=== PATIENT | male | born 1970 | race Caucasian/White ===

== ENCOUNTER → 2018-01-21 | Outpatient (REF) | payer MEDICARE, OTHER ==
[2018-01-22 12:01] LABS: LITHIUM LEVEL 0.85 MEQ/L (0.60-1.20)
== END ==
LOC: M SFHCCLAY 14:31
DX: F31.70 Bipolar disorder, currently in remission, most recent episode unspecified (principal)
CPT/HCPCS: 80178

== ENCOUNTER → 2018-10-04 | Outpatient (CLI) | payer MEDICARE, OTHER ==
--- NOTE | 2018-10-04 12:27 | REP ---
CAROTID ULTRASOUND: Real-time ultrasound evaluation and duplex Doppler interrogation of the extracranial carotid vasculature is performed. There is mild plaquing and narrowing in both carotid bulbs extending into the internal and external carotid arteries. Luminal narrowing is less than 50%. There is no evidence of hemodynamically significant stenosis of either internal carotid artery. Normal flow velocities are seen. The vertebral arteries demonstrate normal direction of flow. RIGHT LEFT Peak systolic velocity ICA 43.8 cm/s 45.9 cm/s End diastolic velocity ICA 17 cm/s 14.5 cm/s Peak systolic velocity CCA 124 cm/s 122 cm/s Peak systolic velocity ECA 59.6 cm/s 118 cm/s ICA/CCA ratio 0.57 0.7 IMPRESSION: Bilateral luminal narrowing of the internal carotid arteries less than 50%. No evidence of hemodynamically significant stenosis. Electronically Signed by Dwight Baker MD 10/04/2018 12:18 P
--- NOTE | 2018-10-04 12:42 | REP ---
BILATERAL LOWER EXTREMITY DUPLEX DOPPLER VENOUS ULTRASOUND: Real-time compression and duplex Doppler interrogation of bilateral lower extremity deep venous systems is performed. Elongated right inguinal lymph nodes measures 2.9 x 0.6 x 1.5 cm demonstrating a fatty hilum. No acute deep vein thrombosis is seen bilaterally. The common femoral veins are fully compressible with transducer pressure. Right superficial femoral vein distally is at least duplicated but three venous structures are seen indicating either three portions of the superficial femoral vein versus duplication plus a collateral vessel. In one of these veins, there is mild mural thickening and thrombus consistent with mild chronic thrombus. This is also seen in the right popliteal vein. 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 There is mild mural thickening and thrombus in the left popliteal vein consistent with mild chronic thrombus. IMPRESSION: No acute deep vein thrombosis. Mild mural thickening and thrombus in a mid to distal right superficial femoral vein and also in the bilateral popliteal veins compatible with mild chronic thrombus. Electronically Signed by Dwight Baker MD 10/04/2018 04:22 P
== END ==
LOC: M RAD 09:34
PROVIDERS: ATTEND Surgery Vascular Surgery
DX: H53.132 Sudden visual loss, left eye (principal); I82.5Z2 Chronic embolism and thrombosis of unspecified deep veins of left distal lower extremity; I82.5Z1 Chronic embolism and thrombosis of unspecified deep veins of right distal lower extremity

== ENCOUNTER → 2018-10-07 | Outpatient (REF) | payer OTHER ==
[2018-10-07 13:25] LABS: ALT/SGPT 22 U/L (12-78); BILIRUBIN,TOTAL 0.4 MG/DL (0.2-1.0); BLOOD UREA NITROGEN 15 MG/DL (7-18); CARBON DIOXIDE LEVEL 26 MEQ/L (21-32); CHLORIDE LEVEL 107 MEQ/L (98-107); CHOLESTEROL LEVEL 216 MG/DL (<200); CREATININE FOR GFR 0.91 MG/DL (0.70-1.30); GLOMERULAR FILTRATION RATE > 60.0 (>60); GLUCOSE, FASTING 124 MG/DL (70-100); HDL CHOLESTEROL 48 MG/DL (>40); LDL CHOLESTEROL 147 MG/DL (<100); LITHIUM LEVEL 0.37 MEQ/L (0.60-1.20); NON-HDL-C 168 MG/DL; POTASSIUM SERUM 4.5 MEQ/L (3.5-5.1); SODIUM LEVEL 139 MEQ/L (136-145); THYROID STIMULATING HORMONE 0.852 uIU/ML (0.358-3.740); TOTAL PROTEIN 6.9 GM/DL (6.4-8.2); TRIGLYCERIDES LEVEL 104 MG/DL (<150)
== END ==
LOC: M SFHCCLAY 08:06
PROVIDERS: ATTEND Family Medicine
DX: Z00.01 Encounter for general adult medical examination with abnormal findings (principal); Z13.220 Encounter for screening for lipoid disorders; Z13.1 Encounter for screening for diabetes mellitus; F31.70 Bipolar disorder, currently in remission, most recent episode unspecified; Z79.899 Other long term (current) drug therapy

== ENCOUNTER → 2018-10-12 | Outpatient (REF) | payer OTHER ==
[2018-10-12 14:29] LABS: HEMOGLOBIN A1c 5.7 %
== END ==
LOC: M SFHCCLAY 09:04
PROVIDERS: ATTEND Family Medicine
DX: R73.01 Impaired fasting glucose (principal)

== ENCOUNTER → 2018-10-19 | Outpatient (CLI) | payer OTHER ==
--- NOTE | 2018-10-19 15:49 | REP ---
BILATERAL LOWER EXTREMITY DUPLEX DOPPLER ARTERIAL ULTRASOUND: Real-time ultrasound and duplex Doppler interrogation of bilateral lower extremity arterial systems is performed. APOORVA right is 1.2 and left is 1.1. 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 Monophasic waveforms are seen in the distal left anterior and posterior tibial arteries with possible stenosis. Mild scattered plaquing is seen bilaterally more proximally and diffusely without other evidence of significant stenosis. PEAK SYSTOLIC VELOCITY RIGHT LEFT Common femoral artery 102.4 cm/s 120.5 cm/s Profunda 60.5 74.9 Proximal SFA 111.9 108.5 Superficial femoral artery mid 82.5 87.1 Superficial femoral artery distal 64.9 59.6 Popliteal 44.7 55.8 Proximal anterior tibial artery 36.1 48.4 Tibial peroneal trunk 46.8 50.5 Proximal posterior tibial artery 65.7 69.5 Distal posterior tibial artery 17.5 27.8 Distal anterior tibial artery 69.2 45.2 IMPRESSION: Suspected stenosis of the proximal right [employer] S[employer]GER with reversed flow distally as well as associated collateral vessels. Suspected stenosis distal left anterior and posterior tibial arteries. No definite stenosis more proximally bilaterally. Electronically Signed by Dwight Baker MD 10/19/2018 04:00 P
== END ==
LOC: M RAD 11:30
PROVIDERS: ATTEND Physician Assistant
DX: M79.661 Pain in right lower leg (principal); M79.662 Pain in left lower leg

== ENCOUNTER → 2018-10-28 | Outpatient (CLI) | payer OTHER ==
[2018-10-28 15:43] LABS: BASO # 0.1 10^3/uL (0.0-0.2); BASO % 0.5 % (0.0-1.0); EOS # 0.4 10^3/uL (0.0-0.50); EOS % 4.5 % (0.0-3.0); HEMATOCRIT 40.5 % (42.0-52.0); HEMOGLOBIN 13.4 g/dl (13.5-17.5); LYMPH # 2.2 10^3/uL (1.5-4.5); LYMPH % 22.9 % (24.0-44.0); MEAN CORPUSCULAR HGB CONC 33.1 g/dl (32.0-36.5); MEAN CORPUSCULAR VOLUME 93.8 fl (80.0-96.0); MONO # 0.7 10^3/uL (0.0-0.8); MONO % 6.7 % (0.0-5.0); NEUTROPHILS # 6.3 10^3/uL (1.8-7.7); PLATELET COUNT, AUTOMATED 253 10^3/uL (150-450); RED BLOOD COUNT 4.32 10^6/uL (4.30-6.10); WHITE BLOOD COUNT 9.6 10^3/uL (4.0-10.0)
== END ==
LOC: M LAB 14:47
PROVIDERS: ATTEND Physician Assistant
DX: I70.211 Atherosclerosis of native arteries of extremities with intermittent claudication, right leg (principal)

== ENCOUNTER → 2018-11-18 | Outpatient (CLI) | payer OTHER ==
[~2018-11-18] MED LIST: BUPIVACAINE HCL 0.5% 10 ML VIAL As Ordered ONE; BUSP30TA PO; CARB200T98 PO; CARB20TA PO; ELIQ2.5T PO; GABA-843 PO; HEPARIN 1,000 UNITS/ML 10ML VIAL (FOR RADIOLOGY& DIALYSIS ONLY) As Ordered ONE; ISOVUE-300 61% 50ML VIAL (Q9967) As Ordered ONE; LIDOCAINE 2% MDV 20 ML VIAL As Ordered ONE; LITH300C PO; LITH300T2 PO; MIDAZOLAM INJ 2 MG/2 ML VIAL (J2250) As Ordered ONE; NEXI20CA PO; VENL100T PO; diphenhydrAMINE INJ 50MG/ML VIAL (J1200) As Ordered ONE; fentaNYL 100 MCG/2 ML INJECTION (J3010) As Ordered ONE
--- NOTE | 2018-11-18 13:13 | ROOPDOC ---
[facility] Report Of Operation Report of Operation DATE OF PROCEDURE: 11/18/2018 PREOPERATIVE DIAGNOSES: Right lower extremity claudication. Left lower extremity claudication. Tobacco use with continued usage with smoking of cigare ttes. 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 Low back issues. 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 POSTOPERATIVE DIAGNOSES: Right lower extremity claudication. Left lower extremity claudication. Tobacco use with continued usage with smoking of cigarettes. 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 Low back issues. 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 PROCEDURE: Abdominal aortogram Pelvic aortogram and bilateral iliofemoral angiogram Selective right common femoral artery catheter placement with right lower extremity angiogram. Selective right superficial femoral artery catheter placement with right lower extremity angiogram. Arterial pressure measurements in the right superficial femoral artery. Selective right popliteal artery catheter placement with right lower short angiogram. Arterial pressure measurements in the right below knee popliteal artery Left common femoral arteriotomy closure with 5 Indian minx closure device. SURGEON: Dr. Leticia Galicia M.D. SOA ENGINEER: Shaun Arenas and Krys Del Valle INDICATION: Patient is a 48-year-old male with bilateral lower extremity claudication and a significant tobacco history of greater than 30 years with usage of cigarettes who presents with right greater than left lower extremity claudication. The patient underwent ultrasound of the bilateral lower extremities with arterial duplex showing severe tibial peroneal atherosclerotic arterial occlusive disease. Patient was evaluated and recommendation is to undergo a right lower extremity angiogram with possible angioplasty, stent and/or arthrectomy The procedure was described and explained in detail to the patient including drawing of pictures demonstrating the procedure and pertinent anatomy. Risks, benefits and alternative treatment options were discussed with the patient. Alternative treatment options included but were not limited to no intervention. Benefits include but were not limited to evaluation of arterial flow through the aorta, iliac and femoral arteries into the lower extremities with possible intervention improving blood flow into the lower extremities with improved relief of symptoms, preventing tissue loss and prevention of possible limb loss. Risks included but were not limited to infection, bleeding, [renal failure requiring hemodialysis], retroperitoneal hematoma, possible need for open surgical intervention, possible requirement for transfusion of blood products, pain, allergic reaction and/or complication from IV contrast, allergic reaction and/or complication from the prepping and draping materials, sedation related complication, pain at the cannulation site, continued or worsening pain in the affected limb, scarring of the skin, bruising, nerve injury, anesthetic complications, cerebrovascular accident, myocardial infarction, pulmonary embolus, deep venous thrombosis, loss of limb, loss of life, poor satisfaction and poor outcome. Risks of not performing the procedure included but were not limited to worsening of current symptoms, worsening of atherosclerotic arterial occlusive disease resulting in possible ulceration and or limb loss and . Patient's questions were answered. Patient voices understanding of these risks, benefits and alternative treatment options. Patient voices acceptance of the risks associated with angiography with possible angioplasty, stent and/or atherectomy and agrees to proceed with the procedure excepting the associated risks of the procedure. No guarantees or promises were made regarding the results or outcome of the procedure. The consent was signed in the preprocedure holding area and the patient had no one with them at this time. ANESTHESIA: Local 10 mL of 2% lidocaine mixed with 0.5% Marcaine. SEDATION TIME: None FLUORO TIME: 1.5 minutes CONTRAST: 13 mL of Isovue 300 IVF: 150 mL ESTIMATED BLOOD LOSS: 1 mL. HEPARIN: None PROTAMINE: [None] COMPLICATIONS: None DRAINS: None SPECIMENS: None IMPLANTS: Left common femoral arteriotomy closure with a 5 Indian minx closure device FINDINGS: The pressure measured in the right superficial femoral artery was 141/66 with a mean of 90. The pressure measurements in the right popliteal artery in the below-knee region were 145/65 with a mean of 89. DESCRIPTION OF PROCEDURE: Patient was taken to angiography suite and placed supine on the angiography room table. The patient was prepped and draped in a standard surgical fashion. A surgical timeout confirming the correct patient, procedure and laterality was performed by myself and the team members in the room confirming the correct patient, procedure and laterality. The left common femoral artery was then cannulated using a micropuncture needle after anesthetizing the overlying skin and subcutaneous tissue with 2% lidocaine mixed with 0.5% Marcaine. A micropuncture wire was advanced through the micropuncture needle which was upsized to a micropuncture sheath. The Harper wire was then advanced through the micropuncture sheath which was upsized to a 5 Indian sheath. The Omni flush catheter was advanced over the Harper wire, placed in the aorta at the level of the diaphragm and an abdominal aortogram was performed. Catheter was then pulled down to the level of the bifurcation of the iliac arteries and and a pelvic aortogram and bilateral iliofemoral angiogram was performed. Catheter was directed over the bifurcation of the iliac arteries using the Harper wire and placed into the right common femoral artery selectively and a selective right lower extremity angiogram was performed. The angiogram showed luminal irregularity at the superficial femoral and popliteal artery junction which was suspicious for underlying stenosis. The catheter was then advanced into the superficial femoral artery using a long angled glide cath and the Harper and a selective right lower extremity superficial femoral arterial angiogram was performed with continued note of the irregularity in the right superficial femoral and popliteal artery junction.. The catheter was advanced into the popliteal artery in the below-knee region using the long angled glide catheter and a Harper wire and a selective popliteal artery angiogram with runoff was performed. Pressure measurements were recorded in the popliteal artery in the below-knee region and were noted to be 145/65 with a mean of 89. The catheter was then pulled back into the right superficial femoral artery in the mid thigh region and pressure measurements were recorded which were 141/66 with a mean of 90. There was no significant gradient noted between the superficial femoral and below knee popliteal artery. The left common femoral arteriotomy was closed using a 5 Indian minx closure device with an additional 10 minutes of adjunctive pressure for hemostasis which was noted. Patient tolerated the procedure well. All instrument, sponge and needle counts were correct at the end of the case. There were no complications. Dr. Galicia was present for and directed the entire case. Patient was transferred to the holding area in stable condition and subsequently discharged home in stable condition. The results and findings of the procedure were discussed and explained to the patient in detail including drawing of pictures in the postprocedure holding area, with all the patient's questions being answered. RADIOLOGIC SUPERVISION AND INTERPRETATION: ABDOMINAL AORTOGRAM: The abdominal aortogram showed the aorta to be widely patent from the diaphragm to the bifurcation of the iliac arteries. The superior mesenteric, celiac and bilateral renal arteries were noted to be widely patent as well as the inferior mesenteric artery. There was good filling of lumbar arteries off of the infrarenal aorta. PELVIC AORTOGRAM AND BILATERAL ILIOFEMORAL ANGIOGRAM: This showed the common iliac external and internal iliac arteries to be widely patent. The left common femoral artery and proximal superficial femoral and profunda femoris arteries were widely patent with no visualization below the puncture site on the left side. The right common femoral artery was widely patent as well as the proximal superficial femoral and profunda femoris arteries. SELECTIVE RIGHT COMMON FEMORAL ARTERY CATHETER PLACEMENT WITH ANGIOGRAPHY: SELECTIVE RIGHT SUPERFICIAL FEMORAL ARTERY CATHETER PLACEMENT WITH ANGIOGRAPHY: SELECTIVE RIGHT POPLITEAL ARTERY CATHETER PLACEMENT WITH ANGIOGRAPHY: CONCLUSION: PLAN: Alex Galicia MD Nov 18, 2018 11:35
[2018-11-18 16:00] VITALS: BP 142/66
== END ==
LOC: M IRPRO 10:19
PROVIDERS: ATTEND Surgery Vascular Surgery
DX: I70.213 Atherosclerosis of native arteries of extremities with intermittent claudication, bilateral legs (principal); I65.23 Occlusion and stenosis of bilateral carotid arteries; M54.5 Low back pain; F31.9 Bipolar disorder, unspecified; F32.9 Major depressive disorder, single episode, unspecified; Z86.718 Personal history of other venous thrombosis and embolism; Z72.0 Tobacco use; Z79.01 Long term (current) use of anticoagulants
CPT/HCPCS: 36247; 75625; 75716; 75774; C1760; C1769; C1887; C1894; G0269; J1200; J2250; J3010; Q9967

== ENCOUNTER → 2019-01-26 | Outpatient (CLI) | payer OTHER ==
[~2019-01-26] MED LIST changes: -BUPIVACAINE HCL 0.5% 10 ML VIAL As Ordered ONE; -HEPARIN 1,000 UNITS/ML 10ML VIAL (FOR RADIOLOGY& DIALYSIS ONLY) As Ordered ONE; -ISOVUE-300 61% 50ML VIAL (Q9967) As Ordered ONE; -LIDOCAINE 2% MDV 20 ML VIAL As Ordered ONE; -MIDAZOLAM INJ 2 MG/2 ML VIAL (J2250) As Ordered ONE; -diphenhydrAMINE INJ 50MG/ML VIAL (J1200) As Ordered ONE; -fentaNYL 100 MCG/2 ML INJECTION (J3010) As Ordered ONE
--- NOTE | 2019-01-26 15:21 | REP ---
CT brain without contrast: History: Seizures. No comparison brain imaging. CT findings: Preliminary digital infrastructure technician radiograph is unremarkable. Bone window settings demonstrate an intact bony calvarium. Visualized paranasal sinuses are clear. On soft tissue window settings, lateral, third, and fourth ventricles are normal in size and position. Baker-white differentiation pattern is intact above and below the tentorium. There is no evidence of intracranial hemorrhage, mass, extra-axial fluid collection, or midline shift. Impression: Negative noncontrast head CT. Electronically Signed by Alfred Rios MD 01/26/2019 03:54 P
== END ==
LOC: M RAD 13:42
PROVIDERS: ATTEND Psychiatry & Neurology Neurology
DX: G40.89 Other seizures (principal)